=== PATIENT | female | born 1990 | race Caucasian/White ===

== ENCOUNTER 2018-12-23 16:21 | Emergency (ER) | payer BC ==
[2018-12-23 16:42] VITALS: RESP 18; TEMP 99.4
--- NOTE | 2018-12-23 17:57 | XR ---
Left foot HISTORY: Trauma and pain 3 views of the left foot There is an oblique distal diaphyseal fracture of the third metatarsal, only minimal displacement. Al ignment is essentially maintained. IMPRESSION: Oblique distal third metatarsal fracture of the left foot
--- NOTE | 2018-12-23 18:45 | ED ---
General Adult HPI - General Chief complaint: Extremity Injury, Lower Stated complaint: foot pain Time Seen by Provider: 12/23/18 16:55 Source: patient Mode of arrival: ambulatory Limitations: no limitations - History of Present Illness Initial comments: Patient is a 28-year-old female presenting to emergency department with left foot pain. Patient reports stepping out of a canoe on the rocks when she suddenly developed an onset of pain. Patient reports the incident occurred yesterday. Patient reports mild ecchymosis and swelling in the region. Patient denies any erythema. Patient reports limited range of motion due to pain. Patient reports the pain is exacerbated with weightbearing and alleviated at rest. Patient reports taking [id number] analgesics with minimal improvement . Patient denies any numbness or tingling. - Related Data Allergies Allergy/AdvReac Type Severity Reaction Status Date / Time No Known Allergies Allergy Verified 12/23/18 16:42 Review of Systems ROS Statement: Those systems with pertinent positive or pertinent negative responses have been documented in the HPI. ROS Other: All systems not noted in ROS Statement are negative. Past Medical History Past Medical History: No Reported History Past Surgical History: No Surgical Hx Reported Past Psychological History: No Psychological Hx Reported Smoking Status: Current every day smoker Past Alcohol Use History: Occasional Past Drug Use History: None Reported General Exam - General Exam Comments Initial Comments: General: Well-developed well-nourished distress HEENT: Normocephalic/atraumatic, PERLL, pharynx erythema, swallowing well, EAC no erythema, no exudates, TM clear, no cervical lymph nodes Neck: Supple, nontender, trachea midline Chest/Lungs: Normal respirations, no signs of respiratory distress clear to auscultation bilaterally no wheezes, rales, rhonchi Cardiac: Regular rate and rhythm, normal S1-S2, no murmurs rubs or gallops Abdomen/GI: Soft nontender, bowel sounds equal or quadrant x4, no guarding, no rebound no CVA tenderness Musculoskeletal: Left mid foot tenderness on palpation, minor ecchymosis and edema at the site of injury, no lacerations or abrasions, +2 dorsalis pedis sy mptoms steered tibialis, limited range of motion due to pain, Skin: Warmth, no rashes or lesions, no cyanosis or diaphoresis Neurologic: AAO x 3, CN 2-12 intact, Psychiatric: Mood and affect normal, judgment normal Limitations: no limitations Course Vital Signs 12/23/18 12/23/18 16:38 18:58 Temperature 99.4 F Pulse Rate 105 H 95 Respiratory 18 18 Rate Blood Pressure 154/109 152/102 O2 Sat by Pulse 97 96 Oximetry Procedures - Orthopedic Splinting/Casting Injury #1 Side: left Lower Extremity Injury Location: ankle, foot Lower Extremity Immobilizer: posterior splint, Abdelrahman wrap Other Orthopedic Equipment: crutches Medical Decision Making - Medical Decision Making Patient is a 28-year-old female presenting to emergency Department with left foot pain. X-ray of the left foot is indicative of a closed third metatarsals fracture. Posterior splint was placed. Patient advised to follow-up with orthopedics. Patient advised to alternate between Tylenol and ibuprofen for pain control. Patient advised to apply ice compress to minimize swelling. Strict return parameters were thoroughly discussed the patient was understanding and agreeable. Case discussed with physician. Disposition Clinical Impression: Fracture of third metatarsal bone of left foot Disposition: HOME SELF-CARE Condition: Stable Instructions (If sedation given, give patient instructions): Foot Fracture in Adults (ED) Additional Instructions: Please follow with orthopedics. Keep leg elevated alternate between Tylenol and ibuprofen for pain control. Please return to emergency department if symptoms worsen. Is patient prescribed a controlled substance at d/c from ED?: No Referrals: Jacinto Coffman MD [Primary Care Provider] - 1-2 days Hernan Logan DO [Doctor of Osteopathic Medicine] - 1-2 days Time of Disposition: 18:45
[2018-12-23 18:58] VITALS: BP 152/102; PULSE 95
== END 2018-12-23 19:07 | disposition home or self-care (01) ==
LOC: EC 16:21
DX: S92.332A Displaced fracture of third metatarsal bone, left foot, initial encounter for closed fracture (principal); F17.200 Nicotine dependence, unspecified, uncomplicated; W01.0XXA Fall on same level from slipping, tripping and stumbling without subsequent striking against object, initial encounter
CPT/HCPCS: 29515; 99283

== ENCOUNTER → 2020-05-12 | Outpatient (CLI) | payer BC | END | disposition home or self-care (01) | LOC: CPPFTMAIN 08:53 | PROVIDERS: ATTEND Family Medicine | DX: J45.909 Unspecified asthma, uncomplicated (principal) | CPT/HCPCS: 94060; 94726; 94729 ==

== ENCOUNTER 2020-06-28 18:25 | Emergency (ER) | payer BC ==
[2020-06-28 18:32] VITALS: RESP 20
[2020-06-28] MEDS ORDERED: KETOROLAC 15 MG/ML 1 ML VIAL IM STA (18:41)
--- NOTE | 2020-06-28 18:42 | ED ---
General Adult HPI - General Chief complaint: Extremity Injury, Upper Stated complaint: fall, elbow injury Time Seen by Provider: 06/28/20 18:35 Source: patient Mode of arrival: ambulatory Limitations: no limitations - History of Present Illness Initial comments: Dictation was produced using [employer] dictation software. please excuse any grammatical, word or spelling errors. This patient was cared for during a federal and state declared state of emergency secondary to Covid 19 Chief Complaint: 29-year-old male presents with right elbow pain History of Present Illness: 29-year-old female patient slipped and fell backwards she tried to catch herself with her elbow. Patient states she landed on her right elbow. She states that she had pain over the radial head. Skin ongoing for the last 6 hours she got pain was gone away. She is having trouble with pronation. She's had this elbow in the past. The ROS documented in this emergency department record has been reviewed and confirmed by me. Those systems with pertinent positive or negative responses have been documented in the HPI. All other systems are other negative and/or noncontributory. PHYSICAL EXAM: General Impression: Alert and oriented x3, not in acute distress HEENT: Normocephalic atraumatic, extra-ocular movements intact, pupils equal and reactive to light bilaterally, mucous membranes moist. Cardiovascular: Heart regular rate and rhythm Chest: Able to complete full sentences, no retractions, no tachypnea Abdomen: abdomen soft, non-tender, non-distended, no organomegaly Musculoskeletal: Pulses present and equal in all extremities, no peripheral edema Right upper extremity: Pain over the radial head passive range of motion intact with flexion and extension no wrist pain or scaphoid pain, no tenderness to palpation over the olecranon, no gross deformities Motor: no focal deficits noted Neurological: CN II-XII grossly intact, no focal motor or sensory deficits noted Skin: Intact with no visualized rashes Psych: Normal affect and mood ED course: 29-year-old female presents with elbow pain after fall. As upon arrival are within acceptable limits. Patient denies could she is not sexually active. Elbow x-ray shows acute intra-articular large fracture of the radial head with a few millimeters of impaction. Case was discussed with Dr. Smith who recommends outpatient follow-up in his office tomorrow. - Related Data Allergies Allergy/AdvReac Type Severity Reaction Status Date / Time No Known Allergies Allergy Verified 06/28/20 18:32 Review of Systems ROS Statement: Those systems with pertinent positive or pertinent negative responses have been documented in the HPI. ROS Other: All systems not noted in ROS Statement are negative. Past Medical History Past Medical History: No Reported History History of Any Multi-Drug Resistant Organisms: None Reported Past Surgical History: No Surgical Hx Reported Past Psychological History: No Psychological Hx Reported Smoking Status: Never smoker Past Alcohol Use History: Occasional Past Drug Use History: Marijuana General Exam Limitations: no limitations Course Vital Signs 06/28/20 18:30 Temperature 98.9 F Pulse Rate 113 H Respiratory 20 Rate Blood Pressure 141/104 O2 Sat by Pulse 100 Oximetry Disposition Clinical Impression: Radial head fracture Disposition: HOME SELF-CARE Condition: Good Instructions (If sedation given, give patient instructions): Elbow Fracture (ED) Additional Instructions: Follow-up with Dr. Smith. He recommends that you call his office tomorrow to make an appointment for tomorrow. Is patient prescribed a controlled substance at d/c from ED?: No Referrals: Emir Smith MD [STAFF PHYSICIAN] - 1-2 days Time of Disposition: 19:51
--- NOTE | 2020-06-28 19:17 | XR ---
EXAMINATION TYPE: XR elbow complete RT DATE OF EXAM: 06/28/2020 COMPARISON: NONE HISTORY: Elbow pain TECHNIQUE: 3 views FINDINGS: There is 8mm intra-articular fracture of the lateral aspect of the radial head. There is no dislocation. Joint spaces are normal. IMPRESSION: Acute intra-articular large chip fracture of the radial head. There is a few millimeter i mpaction.
[2020-06-28] MEDS ORDERED: ACET/COD 300 MG/30 MG STARTER PACK 6 TAB BTL PO STA (19:51)
[2020-06-28 20:15] VITALS: BP 143/99; PULSE 97; TEMP 98.8
== END 2020-06-28 20:12 | disposition home or self-care (01) ==
LOC: EC 18:25
DX: S52.124A Nondisplaced fracture of head of right radius, initial encounter for closed fracture (principal); W01.0XXA Fall on same level from slipping, tripping and stumbling without subsequent striking against object, initial encounter; Y92.009 Unspecified place in unspecified non-institutional (private) residence as the place of occurrence of the external cause
CPT/HCPCS: 73080; 96372; 99283; J1885

== ENCOUNTER → 2020-06-29 | Outpatient (CLI) | payer BC ==
--- NOTE | 2020-06-29 16:56 | CT ---
EXAMINATION TYPE: CT elbow RT wo con DATE OF EXAM: 06/29/2020 COMPARISON: HISTORY: Slip and fall on ice yesterday, right elbow pain. CT DLP: 197.7 mGycm Automated exposure control for dose reduction was used. Images were obtained from the mid humerus to the mid radius without contrast. There is slightly impacted intra-articular 13 mm fracture of the medial aspect of the radial head. Th ere is approximate 2 mm of impaction. The distal humerus is intact. The ulna is intact. I see no bony destructive process. There is no evidence of any significant elbow joint effusion. There is no evide nce of soft tissue mass. I see no bony destructive process. The radial neck is intact. IMPRESSION: Acute slightly impacted intra-articular large chip fracture of the radial head as above.
== END | disposition home or self-care (01) ==
LOC: RADCTMAIN 16:26
PROVIDERS: ATTEND Orthopaedic Surgery
DX: S52.121A Displaced fracture of head of right radius, initial encounter for closed fracture (principal)

== ENCOUNTER 2020-10-12 18:26 | Emergency (ER) | payer BC ==
[2020-10-12 18:34] VITALS: BP 137/93; PULSE 87; RESP 16; TEMP 98.5
--- NOTE | 2020-10-12 20:20 | ED ---
Extremity Problem HPI - General Chief complaint: Extremity Problem,Nontraumatic Stated complaint: leg pain Time Seen by Provider: 10/12/20 18:59 Source: patient Mode of arrival: ambulatory Limitations: no limitations - History of Present Illness Initial comments: Patient is a 30-year-old female presenting to the emergency Department with complaints of left lower leg swelling and pain for the last 3 weeks. Patient does not remember any sort of injury or trauma to that leg. 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 Patient states she has been having this lingering lower left calf pain for the last few weeks, she tried massage to the area, thought it was a muscle cramp but it still there and she wanted to make sure its not a blood clot. She denies history of blood clots, denies any recent travel. She denies any chest pain or shortness of breath, no cough. Patient also requesting a test as she had an IUD placed a few months ago and has been having intermittent spotting and just wants to make sure she is not . She denies any abdominal pain, no nausea or vomiting. She has no further complaints at this time. - Related Data Allergies Allergy/AdvReac Type Severity Reaction Status Date / Time No Known Allergies Allergy Verified 10/12/20 18:34 Review of Systems ROS Statement: Those systems with pertinent positive or pertinent negative responses have been documented in the HPI. ROS Other: All systems not noted in ROS Statement are negative. Past Medical History Past Medical History: No Reported History History of Any Multi-Drug Resistant Organisms: None Reported Past Surgical History: No Surgical Hx Reported Past Psychological History: Anxiety, Depression Smoking Status: Never smoker Past Alcohol Use History: Occasional Past Drug Use History: Marijuana General Exam - General Exam Comments Initial Comments: GENERAL: Patient is well-developed and well-nourished. Patient is nontoxic and in no acute distress. HEAD: Atraumatic, normocephalic. EYES: Pupils equal round and reactive to light, extraocular movements intact, sclera anicteric, conjunctiva are normal. Eyelids were unremarkable. ENT: TMs normal, nares patent, oropharynx clear without exudates. Moist mucous membranes. NECK: Normal range of motion, supple without lymphadenopathy or JVD. LUNGS: Unlabored respirations. Breath sounds clear to auscultation bilaterally and equal. No wheezes rales or rhonchi. HEART: Regular rate and rhythm without murmurs, rubs or gallops. ABDOMEN: Soft, nontender, normoactive bowel sounds. No guarding, no rebound. No masses appreciated. : Deferred MUSCULOSKELETAL: Normal extremities with adequate strength and normal range of motion, no pitting or edema. No clubbing or cyanosis. Patient has some mild pain with palpation of the left calf, no swelling, no erythema, no deformity. Neurovascular intact bilateral lower extremities. NEUROLOGICAL: Patient is alert and oriented x 3. Motor and sensory are also intact. Cranial nerves II through XII grossly intact. Symmetrical smile. Normal speech, normal gait. PSYCH: Normal mood, normal affect. SKIN: Warm, Dry, normal turgor, no rashes or lesions noted. Limitations: no limitations Course Vital Signs 10/12/20 18:30 Temperature 98.5 F Pulse Rate 87 Respiratory 16 Rate Blood Pressure 137/93 O2 Sat by Pulse 98 Oximetry Medical Decision Making - Medical Decision Making Patient is a 30-year-old female here with left lower calf pain for the last 3 weeks. No history of blood clots, she is on thinners. No chest pain or shortn ess of breath. No recent travel. She is also requesting a test secondary to intermittent spotting, new IUD placed a few months ago. Urine hCG is negative. US of the left lower extremity showed no evidence of DVT. I discussed with patient this is most likely muscle skeletal related. I recommended continuing to stretch, massage, heat to the area. She can follow up with her regular doctor. She is stable for discharge and in agreement with this plan of care. - Lab Data Lab Results 10/12/20 Range/Units 19:37 Urine HCG, Qual Not Detected (Not Detectd) Disposition Clinical Impression: Pain of left calf Disposition: HOME SELF-CARE Condition: Stable Instructions (If sedation given, give patient instructions): Musculoskeletal Pain (ED) Additional Instructions: Please return to the Emergency Department if symptoms worsen or any other concerns. Ultrasound is negative for DVT today. Follow-up with your regular doctor. Is patient prescribed a controlled substance at d/c from ED?: No Referrals: Jacinto Coffman MD [Primary Care Provider] - 1-2 days Time of Disposition: 20:57
--- NOTE | 2020-10-12 20:47 | US ---
EXAMINATION TYPE: US venous doppler duplex LE LT DATE OF EXAM: 10/12/2020 8:22 PM COMPARISON: NONE CLINICAL HISTORY: pain, swelling x 3 wks, no injury. Pain and swelling x 3 weeks. Patient does not ta ke blood thinners. No hx of DVT. SIDE PERFORMED: Left TECHNIQUE: The lower extremity deep venous system is examined utilizing real time linear array sonog corby with graded compression, doppler sonography and color-flow sonography. VESSELS IMAGED: Common Femoral Vein Deep Femoral Vein Greater Saphenous Vein * Femoral Vein Popliteal Vein Small Saphenous Vein * Proximal Calf Veins (* superficial vessels) Left Leg: Limited due to edema. No evidence of DVT in veins imaged at this time. IMPRESSION: Suboptimal study without acute DVT in the left lower extremity currently.
== END 2020-10-12 21:01 | disposition home or self-care (01) ==
LOC: EC 18:26
DX: M79.662 Pain in left lower leg (principal); M79.89 Other specified soft tissue disorders; F41.9 Anxiety disorder, unspecified; F32.9 Major depressive disorder, single episode, unspecified; F12.90 Cannabis use, unspecified, uncomplicated
CPT/HCPCS: 81025; 99284

== ENCOUNTER → 2022-03-28 | Outpatient (CLI) | payer BC ==
--- NOTE | 2022-03-28 12:09 | CT ---
EXAMINATION TYPE: CT abdomen pelvis w con DATE OF EXAM: 03/28/2022 COMPARISON: None INDICATION: RUQ pain and swelling radiating around back, bleeding from umbilicus DLP: 1766.7 mGycm, Automated exposure control for dose reduction was used. CONTRAST: 70 mL of Isovue 300. Study performed with Oral Contrast TECHNIQUE: Axial images were obtained from above the diaphragm to the pubic rami in the axial plane a t 5 mm thick sections. Reconstructed images are reviewed on the computer in the coronal plane. FINDINGS: Limited CT sections are obtained the lung bases. The lung bases are clear. CT ABDOMEN: Liver: Normal Spleen: Normal Pancreas: Normal Adrenal glands: The adrenal glands are normal. Gallbladder: Normal Kidneys: No masses are evident. No hydronephrosis is present. No cysts are present. Delayed images were obtained through the kidneys, which remain unremarkable. Aorta: Normal Inferior vena cava: Normal. CT PELVIS: Loops of bowel within the abdomen and pelvis are normal. This study has incomplete distention of some loops of bowel and no contrast is evident within the colon limiting their evaluation. Appendix: Normal as visualized. No adjacent inflammatory changes. No dilated tubular structure. Urinary bladder: Normal. Genitourinary structures: There is a 5.2 x 3.3 cm right ovarian cyst. Uterus contains an IUD. Left ad nexa is unremarkable. Osseous structures: No suspicious lytic or sclerotic lesions. IMPRESSIONS: 1. Right ovarian cyst measuring 5.2 x 3.3 cm. This could be followed with ultrasound.
== END | disposition home or self-care (01) ==
LOC: RADCTMAIN 08:01
PROVIDERS: ATTEND Internal Medicine Geriatric Medicine
DX: N83.201 Unspecified ovarian cyst, right side (principal)
CPT/HCPCS: 74177; Q9967

== ENCOUNTER → 2022-05-30 | Outpatient (CLI) | payer BC ==
--- NOTE | 2022-05-30 10:22 | US ---
EXAMINATION TYPE: US pelvic complete DATE OF EXAM: 05/30/2022 COMPARISON: Correlation CT 03/28/2022 CLINICAL HISTORY: 31-year-old female N83.209 Ovarian cyst. Follow up ovarian cyst. IUD placement 04/29 TECHNIQUE: Transabdominal (TA) Date of LMP: 04/17 FINDINGS: EXAM MEASUREMENTS: Uterus: 7.8 x 3.3 x 4.5 cm Endometrial Stripe: 0.6 cm Right Ovary: 2.8 x 1.7 x 1.9 cm Left Ovary: 3.8 x 1.9 x 2.3 cm 1. Uterus: Anteverted. IUD visualized, probably situated along the uterine cavity. 2. Endometrium: appears wnl 3. Right Ovary: follicles noted 4. Left Ovary: dominant follicle = 2.0cm 5. Bilateral Adnexa: wnl 6. Posterior cul-de-sac: wnl IMPRESSION: 1. The IUD appears appropriately positioned along the uterine cavity. 2. A 2 cm dominant follicle or functional cyst of the left ovary. The 5.2 cm right ovarian cyst has r esolved.
== END | disposition home or self-care (01) ==
LOC: RADUSWWP 09:27
PROVIDERS: ATTEND Internal Medicine Geriatric Medicine
DX: N83.202 Unspecified ovarian cyst, left side (principal); Z97.5 Presence of (intrauterine) contraceptive device
CPT/HCPCS: 76856